=== PATIENT | female | born 1945 | race Caucasian/White ===

== ENCOUNTER 2019-12-09 18:35 | Emergency (ER) | payer MEDICARE ==
[~2019-12-09] VITALS: Ht 157.5 cm; Wt 40.0 kg
[~2019-12-09 18:35] MED LIST: ALBU6.7H8 INH; ATEN50TA41 PO; BUDE10.2 PO; HYDR-3245 PO; HYDR-36 PO; LEVO75TA5 PO; LOSA25TA25 PO; LOVA40TA2 PO; PANT40TA5 PO; RALO60TA12 PO; SULI200T2 PO
--- NOTE | 2019-12-09 18:49 | NUR ---
STEVEN. REPORT RECEIVED FROM EMS. PT C/O BILATERAL LOWER ABD PAIN AND RECTAL PAIN WITH NAUSEA X 4-5 DAYS. NO BM FOR 4-5 DAYS WELL. PT HAS NERVE STIMULATOR ON THE BACK FOR CHLONIC PAIN. 4MG ZOFRAN/75MCG FENTANYL/700ML NS GIVEN MANAGER VALUATION. PT'S PAIN LEVEL IS 3/10 AT THIS TIME. PT'S AOX4. RESPS EVEN AND UNLABORED. BP/SPO2 MONITORS IN PLACE. CALL LIGHT WITHIN REACH.
--- NOTE | 2019-12-09 18:59 | NUR ---
REPORT GIVEN TO MAME MERLOS.
[2019-12-09] MEDS ORDERED: METHYLNALTREXONE 12 MG/0.6 ML SYR SQ ONE ×2 (19:00→19:09)
[2019-12-09] MEDS ORDERED: MAGNESIUM CITRATE 300ML ORAL SOL PO ONE (19:00)
[2019-12-09] MEDS ORDERED: MAGNESIUM CITRATE 300ML ORAL SOL ONE (19:09)
[2019-12-09 19:25] LABS: ALANINE AMINOTRANSFERASE 12 U/L (12-78); ALBUMIN 3.2 g/dL (3.4-5.0); ANION GAP 7 mmol/L (5-15); CALCIUM 8.7 mg/dL (8.5-10.1); CHLORIDE 110 mmol/L (98-107); CREATININE 1.08 mg/dL (0.55-1.02)
[2019-12-09 19:27] LABS: BASOPHILS # (AUTO) 0.06 x10^3/uL (0-0.1); BASOPHILS % (AUTO) 1 % (0-1); EOSINOPHILS # (AUTO) 0.13 x10^3/uL (0-0.4); EOSINOPHILS % (AUTO) 2 % (1-7); LYMPHOCYTES # (AUTO) 1.82 x10^3/uL (1-3.4); LYMPHOCYTES % (AUTO) 22 % (22-44); MD NO; MEAN CORPUSCULAR HEMOGLOBIN 31.1 pg (27.0-34.8); MEAN CORPUSCULAR HGB CONC 33.4 g/dL (32.4-35.8); MEAN CORPUSCULAR VOLUME 93.1 fL (80-100); MEAN PLATELET VOLUME 8.2 fL (7.4-10.4); MONOCYTES # (AUTO) 0.48 x10^3/uL (0.2-0.8); MONOCYTES % (AUTO) 6 % (2-9); NEUTROPHILS # (AUTO) 5.61 x10^3/uL (1.8-6.8); NEUTROPHILS % (AUTO) 69 % (42-75); PLATELET COUNT 200 x10^3/uL (130-400); RED BLOOD COUNT 3.56 x10^6/uL (3.82-5.3); RED CELL DISTRIBUTION WIDTH 15.3 % (9.6-15.2)
[2019-12-09 19:28] LABS: ALKALINE PHOSPHATASE 47 U/L (45-117); BILIRUBIN,TOTAL 0.5 mg/dL (0.2-1.0); TOTAL PROTEIN 6.9 g/dL (6.4-8.2)
--- NOTE | 2019-12-09 19:54 | NUR ---
PT MEDICATED PER OCT, COMMODE AT BS. PT EDUCATED ARMATURE WINDER AUTOMOTIVE DONT FALL AND CALL LIGHT USE, SPO2 MONITORING IN PLACE, CALL LIGHT WITHIN REACH.
[2019-12-09] MEDS ORDERED: ONDANSETRON 2MG/ML, 2ML ONE (21:10)
[2019-12-09] MEDS ORDERED: MORPHINE SULFATE 4 MG/ML, 1ML ONE (21:11)
--- NOTE | 2019-12-09 21:23 | NUR ---
PT HAD SMALL BOWEL MOVEMENT, STOOL WATERY. PT REPORTING NAUSEA AND INCREASED PAIN. MEDICATED PER OCT.
[2019-12-09] MEDS ORDERED: ONDANSETRON 2MG/ML, 2ML IVPush ONE (21:30)
[2019-12-09] MEDS ORDERED: MORPHINE SULFATE 4 MG/ML, 1ML IVPush PRN (21:30)
[2019-12-09] MEDS ORDERED: OMNIPAQUE 350 MG/ML, 100ML BOTTLE ONE (21:46)
[2019-12-09 22:37] VITALS: BP 124/89
== END 2019-12-09 22:50 | disposition home or self-care (01) ==
LOC: ED 19:28
DX: K59.00 Constipation, unspecified (principal); R10.84 Generalized abdominal pain; I10 Essential (primary) hypertension; E03.9 Hypothyroidism, unspecified; J44.9 Chronic obstructive pulmonary disease, unspecified; M19.90 Unspecified osteoarthritis, unspecified site; Z90.49 Acquired absence of other specified parts of digestive tract; Z87.891 Personal history of nicotine dependence
CPT/HCPCS: 36415; 74021; 74177; 80053; 83690; 85025; 96372; 96374; 96375; 99285; J2270; J2405; Q9967

== ENCOUNTER → 2020-03-10 | Outpatient (CLI) | payer MEDICARE ==
[~2020-03-10] MED LIST changes: +ATEN100T PO; +CHOL10003 PO; +HYDR-3246 PO; -HYDR-36 PO; +LOSA100T14 PO; +NALD0.2T PO; +OMEP-110 PO; +POLY17PO5 PO; +SIMV40TA20 PO; +TIOT4MIS3 INH
[2020-03-10 10:34] LABS: ALANINE AMINOTRANSFERASE 17 U/L (12-78); ALBUMIN 4.1 g/dL (3.4-5.0); ANION GAP 3 mmol/L (5-15); CHLORIDE 108 mmol/L (98-107); CREATININE 1.04 mg/dL (0.55-1.02)
[2020-03-10 10:36] LABS: ALKALINE PHOSPHATASE 57 U/L (45-117); BILIRUBIN,TOTAL 0.5 mg/dL (0.2-1.0); TOTAL PROTEIN 7.8 g/dL (6.4-8.2)
== END | disposition home or self-care (01) ==
LOC: STAR 09:08
PROVIDERS: ATTEND Internal Medicine
DX: Z01.818 Encounter for other preprocedural examination (principal); K31.7 Polyp of stomach and duodenum
CPT/HCPCS: 36415; 80053; 93005

== ENCOUNTER 2020-03-14 11:11 | Day surgery (SDC) | payer MEDICARE ==
[~2020-03-14] VITALS: Ht 157.5 cm; Wt 43.9 kg
[2020-03-14] MEDS ORDERED: CHLORHEXIDINE 15 ML UDC MM STA (11:27)
[2020-03-14] MEDS ORDERED: LIDOCAINE-MPF 1%, 2ML INFIL STA (11:27)
[2020-03-14] MEDS ORDERED: LACTATED RINGERS 1,000 ML IV SCH (11:27)
[2020-03-14 11:38] VITALS: BP 155/78
[2020-03-14] MEDS ORDERED: PROPOFOL 50 ML ONE (11:49)
[2020-03-14] MEDS ORDERED: MIDAZOLAM 1 MG/ML, 2ML ONE (11:56)
[2020-03-14] MEDS ORDERED: FENTANYL PF 100 MCG/2ML ONE (11:56)
[2020-03-14] MEDS ORDERED: PROMETHAZINE 25 MG/ML, 1ML IVPush PRN (12:30)
[2020-03-14] MEDS ORDERED: OXYcodone 5 MG/5 ML ORAL.SOL UDC PO PRN (12:30)
[2020-03-14] MEDS ORDERED: ACETAMINOPHEN 325 MG TABLET PO PRN (12:30)
[2020-03-14] MEDS ORDERED: LABETALOL 5MG/ML, 20ML IV PRN (12:30)
[2020-03-14] MEDS ORDERED: FENTANYL PF 100 MCG/2ML IV PRN (12:30)
[2020-03-14] MEDS ORDERED: ONDANSETRON 2MG/ML, 2ML IVPush PRN (12:30)
[2020-03-14] MEDS ORDERED: hydrALAzine 20 MG/ML, 1ML IV PRN (12:30)
[2020-03-14] MEDS ORDERED: morphine SULFATE 10 MG/ML, 1ML IVPush PRN (12:30)
== END 2020-03-14 13:45 | disposition home or self-care (01) ==
LOC: OUT 11:11
PROVIDERS: ATTEND Internal Medicine
DX: D17.5 Benign lipomatous neoplasm of intra-abdominal organs (principal); K29.61 Other gastritis with bleeding; K31.89 Other diseases of stomach and duodenum; I70.0 Atherosclerosis of aorta; I77.4 Celiac artery compression syndrome; K44.9 Diaphragmatic hernia without obstruction or gangrene; E03.9 Hypothyroidism, unspecified; I10 Essential (primary) hypertension; E78.5 Hyperlipidemia, unspecified; I73.9 Peripheral vascular disease, unspecified; Z79.899 Other long term (current) drug therapy; Z72.89 Other problems related to lifestyle; Z87.891 Personal history of nicotine dependence; Z82.49 Family history of ischemic heart disease and other diseases of the circulatory system
CPT/HCPCS: 43237; J2250; J2704; J3010; J7120; 36415; 87635

== ENCOUNTER → 2021-04-10 | Outpatient (CLI) | payer MEDICARE ==
[~2021-04-10] MED LIST changes: +ACID1TAB7 PO; +CIPR250T27 PO; -HYDR-3245 PO; -HYDR-3246 PO; +HYDR-3248 PO; +HYDR1TAB53 PO; +METR500T PO; -NALD0.2T PO; +NALD0.2T3 PO; -PANT40TA5 PO; +PANT40TA6 PO
== END | disposition home or self-care (01) ==
LOC: STAR 10:55
PROVIDERS: ATTEND Specialist
DX: Z01.818 Encounter for other preprocedural examination (principal); M54.16 Radiculopathy, lumbar region
CPT/HCPCS: 93005